=== PATIENT | male | born 1975 | race Caucasian/White ===

== ENCOUNTER 2017-04-14 00:52 | Emergency (ER) | payer SELFPAY ==
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
[2017-04-14] MEDS ORDERED: Triple Antibiotic 0.94 gm Pkt TP ONE (01:49)
[2017-04-14] MEDS ORDERED: Triple Antibiotic 0.94 gm Pkt TP STA (01:50)
--- NOTE | 2017-04-14 08:01 | Diagnostic Imaging Report ---
Exam: Right ankle HISTORY: Trauma Findings: Multiple views of the right ankle reviewed. The study demonstrates soft tissue swelling over the left medial malleolus. The ankle mortise is intact. There is a question of a small cortical avulsion the right medial malleolus. Clinical correlation recommended. There is a question of the prominence of the fat planes of the right ankle ligamentous injury cannot be excluded clinically indicated MRI examination might be helpful. IMPRESSION: 1. Soft tissue swelling right medial malleolus with possible cortical avulsion of the small fragment of the medial malleolus. Clinical correlation recommended MRI examination may be helpful.
== END 2017-04-14 02:15 | disposition home or self-care (01) ==
LOC: ER 00:52
DX: S82.891A Other fracture of right lower leg, initial encounter for closed fracture (principal); J45.909 Unspecified asthma, uncomplicated; J44.9 Chronic obstructive pulmonary disease, unspecified; F17.200 Nicotine dependence, unspecified, uncomplicated; W20.8XXA Other cause of strike by thrown, projected or falling object, initial encounter; Y93.89 Activity, other specified; Y92.89 Other specified places as the place of occurrence of the external cause; Y99.8 Other external cause status
CPT/HCPCS: 99284; 96372; 73610; J1885; Z7502

== ENCOUNTER 2017-09-15 08:20 | Emergency (ER) | payer MEDICAID ==
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
[2017-09-15] MEDS ORDERED: Clindamycin 150 mg/mL 4mL Vial ONE (08:52)
[2017-09-15] MEDS ORDERED: Hydrocodone/APAP 10 mg/325 mg Tab PO STA (09:02)
[2017-09-15] MEDS ORDERED: Hydrocodone/APAP 10 mg/325 mg Tab ONE ×2 (09:06→18:05)
== END 2017-09-15 09:42 | disposition home or self-care (01) ==
LOC: ER 08:20
DX: K04.7 Periapical abscess without sinus (principal); K02.9 Dental caries, unspecified; F17.200 Nicotine dependence, unspecified, uncomplicated
CPT/HCPCS: X5958; Z7502; Z7610

== ENCOUNTER 2017-09-20 19:22 | Emergency (ER) | payer MEDICAID ==
--- NOTE | 2017-09-20 20:32 | ED Physician Chart ---
ED Chief Complaint/HPI - Patient Information Date Seen:: 09/20/17 Time Seen:: 20:15 Chief Complaint:: rash History of Present Illness:: Patient was seen here a few days ago for pain left upper gum and prescribed clindamycin after which she developed a burning and itching rash, difficulty breathing and facial swelling. He stopped the clindamycin yesterday. Since then his symptoms have improved. Patient requests a prescription for Keflex which he says works for him. Patient is allergic to amoxicillin and penicillin which cause facial swelling. Allergies:: Allergies Allergy/AdvReac Type Severity Reaction Status Date / Time amoxicillin Allergy Verified 04/14/17 01:07 cephalexin [From Keflex] Allergy Verified 04/14/17 01:07 clindamycin Allergy Verified 09/20/17 20:14 Penicillins [PCN] Allergy Verified 04/14/17 01:07 Sulfa (Sulfonamide Allergy Verified 04/14/17 01:07 Antibiotics) Tetracyclines Allergy Verified 04/14/17 01:07 Vitals:: Vital Signs - 8 hr 09/20/17 19:30 Temp 98.4 F HR 86 RR 18 BP 128/83 O2 Sat % 97 Historian:: Patient Review:: Nurse's Note Reviewed ED Review of Systems - Review of Systems General/Constitutional: No fever, No chills Skin: No skin lesions Head: No headache Eyes: No loss of vision ENT: No earache, Other Neck: No neck pain (see history and physical), No swelling Cardio Vascular: No chest pain, No palpitations Pulmonary: No SOB GI: No nausea, No vomiting, No diarrhea G/U: No dysuria Musculoskeletal: No bone or joint pain, No back pain, No muscle pain Psychiatric: No prior psych history, No depression, No anxiety Hematopoietic: No bruising, No lymphadenopathy Allergic/Immuno: No urticaria Neurological: No syncope, No focal symptoms ED Past Medical History - Past Medical History Past Medical History: Asthma/COPD Family History: HTN Social History: Smoker, No Alcohol, Other (smokes 1 pack of cigarettes a day) Surgical History: None Psychiatricy History: None Medication: Reviewed Family Medical History - Family Member Grandmother History Unknown: Yes Ethnicity: Non- Hx Family Coronary Artery Disease: No Hx Family Congestive Heart Failure: No Hx Family Hypertension: No Hx Family Diabetes: No Hx Family Dementia: No Hx Family COPD: No Hx Family Hepatitis: No Mother Hx Family Hypertension: Yes Other Medical History: bone cancer ED Physical Exam - Physical Examination General/Constitutional: Awake, Well-developed, well-nourished, Alert, No distress Head: Atraumatic Eyes: Lids, conjuctiva normal, PERRL Other Skin comments:: 1 area of Erythema about 5 cm in diameter left superior chest ENMT: External ears, nose nl, TM canals nl, Nasal exam nl, Oropharynx nl, Tonsils nl Other ENMT comments:: Tenderness left superior gum with some slight purplish discoloration of the gum but without any swelling Neck: No nuchal rigidity Respiratory: Nl effort/Exclusion Cardio Vascular: RRR GI: No tenderness/rebounding/guarding : No CVA tenderness Extremities: Normal digits & nails Neuro/Psych: No focal deficits Misc: No paraspinal tenderness ED Septic Shock - . Is Septic Shock (SBP<90, OR Lactate>4 mmol\L) present?: No - <6hrs of presentation: Vital Signs: Vital Signs - 8 hr 09/20/17 19:30 Temp 98.4 F HR 86 RR 18 BP 128/83 O2 Sat % 97 ED Reassessment (Disposition) - Reassessment Reassessment Condition:: Unchanged - Diagnosis Diagnosis:: Allergic reaction to clindamycin; periodontal abscess - Aftercare/Follow up Instructions Medication Prescribed:: Keflex 500 mg #40 to take 1 4 times a day and [place] 10/325 #16 to take 1 4 times a day as necessary. - Patient Disposition Discharge/Transfer:: Home Condition at Disposition:: Stable, Unchanged
== END 2017-09-20 20:55 | disposition home or self-care (01) ==
LOC: ER 19:22
DX: T36.8X5A Adverse effect of other systemic antibiotics, initial encounter (principal); K05.219 Aggressive periodontitis, localized, unspecified severity; J44.9 Chronic obstructive pulmonary disease, unspecified; J45.909 Unspecified asthma, uncomplicated; F17.200 Nicotine dependence, unspecified, uncomplicated; Y92.89 Other specified places as the place of occurrence of the external cause
CPT/HCPCS: Z7502; Z7610

== ENCOUNTER 2017-10-05 15:35 | Emergency (ER) | payer MEDICAID ==
--- NOTE | 2017-10-05 16:07 | ED Physician Chart ---
ED Chief Complaint/HPI - Patient Information Date Seen:: 10/05/17 Time Seen:: 16:06 Chief Complaint:: Teeth ache History of Present Illness:: 42 yo male had partially lost left molars 3 years ago and subsequently he developed residual teeth infection and gingival infection for 1 month. He had allergic reactions to Clindamycin. Recently, he finished Keflex tid for 2 weeks. The pain and swelling of left upper gingiva surrounding the broken teeth became worse after missing Keflex for 2 days. He denied fever or chills. He last saw a dentist 7 months ago. He will have a dentist appointment on 10/23/17. Allergies:: Allergies Allergy/AdvReac Type Severity Reaction Status Date / Time amoxicillin Allergy Verified 04/14/17 01:07 clindamycin Allergy Verified 09/20/17 20:14 Penicillins [PCN] Allergy Verified 04/14/17 01:07 Sulfa (Sulfonamide Allergy Verified 04/14/17 01:07 Antibiotics) Tetracyclines Allergy Verified 04/14/17 01:07 Vitals:: Vital Signs - 8 hr 10/05/17 16:00 Temp 98.6 F HR 84 RR 19 BP 131/75 O2 Sat % 94 ED Review of Systems - Review of Systems General/Constitutional: No fever Skin: No skin lesions Head: No headache Eyes: No pain ENT: No nasal drainage, Other (tooth ache) Neck: No neck pain Cardio Vascular: No chest pain Pulmonary: No SOB GI: No nausea, No vomiting Musculoskeletal: No bone or joint pain Neurological: No focal symptoms ED Past Medical History - Past Medical History Past Medical History: No significant medical hx Social History: Smoker, No Alcohol, No Drug Use Surgical History: None Family Medical History - Family Member Grandmother History Unknown: Yes Ethnicity: Non- Hx Family Coronary Artery Disease: No Hx Family Congestive Heart Failure: No Hx Family Hypertension: No Hx Family Diabetes: No Hx Family Dementia: No Hx Family COPD: No Hx Family Hepatitis: No Mother Ethnicity: Non- Living Status: Still Living Hx Family Cancer: Yes (LEUKEMIA) Hx Family Hypertension: Yes ED Physical Exam - Physical Examination General/Constitutional: Awake Head: Atraumatic Eyes: PERRL Skin: No skin lesions Other ENMT comments:: Left upper molars missing with residual teeth embedded in the gingiva with surrounding gingival erythema and tenderness. Neck: No nuchal rigidity Respiratory: Clear to Auscultation Cardio Vascular: RRR, No murmur, gallop, rubs, NL S1 S2 GI: No tenderness/rebounding/guarding Extremities: normal strength in all extremities Neuro/Psych: Normal gait, No focal deficits ED Assessment - Assessment General Assessment: Left upper broken molars with dental caries Left maxillary localized gingivitis Assessment/Comments:: Keflex 500mg po x 1 D/c home Keflex 500mg q6h #40 F/u dentist ED Septic Shock - . Is Septic Shock (SBP<90, OR Lactate>4 mmol\L) present?: No - <6hrs of presentation: Vital Signs: Vital Signs - 8 hr 10/05/ 16:00 Temp 98.6 F HR 84 RR 19 BP 131/75 O2 Sat % 94 ED Reassessment (Disposition) - Reassessment Reassessment Condition:: Improved - Patient Disposition Discharge/Transfer:: Home ED Discharge Plan - Patient Disposition Admit/Discharge/Transfer: PT DISCHARGED HOME Condition at Disposition: Stable Instructions: Gingivitis
== END 2017-10-05 17:00 | disposition home or self-care (01) ==
LOC: ER 15:35
DX: K02.9 Dental caries, unspecified (principal); K05.10 Chronic gingivitis, plaque induced; F17.200 Nicotine dependence, unspecified, uncomplicated
CPT/HCPCS: Z7502; Z7610